=== PATIENT | male | born 2000 | race Hispanic/Latino ===

== ENCOUNTER 2023-02-01 15:28 | Emergency (ER) | payer OTHER | END 2023-02-01 17:48 | disposition home or self-care (01) | LOC: ERS 15:28 | DX: K64.9 Unspecified hemorrhoids (principal); F17.290 Nicotine dependence, other tobacco product, uncomplicated | CPT/HCPCS: 99283 ==

== ENCOUNTER 2024-10-05 11:58 | Emergency (ER) | payer SELFPAY ==
[2024-10-05] MEDS ORDERED: Lidocaine 1% PF 5 ML VIAL ONE (13:37)
[2024-10-05] MEDS ORDERED: Boostrix 0.5 ML (Tdap) VIAL (>/=7 yrs of age) ONE (13:37)
[2024-10-05] MEDS ORDERED: Bacitracin 1 PK ONE (13:59)
== END 2024-10-05 14:10 | disposition home or self-care (01) ==
LOC: ERS 11:58
DX: S61.211A Laceration without foreign body of left index finger without damage to nail, initial encounter (principal); S61.223A Laceration with foreign body of left middle finger without damage to nail, initial encounter; F17.290 Nicotine dependence, other tobacco product, uncomplicated; W26.0XXA Contact with knife, initial encounter; Z23 Encounter for immunization
CPT/HCPCS: 12001; 90471; 90715